=== PATIENT | male | born 1935 | race Caucasian/White ===

== ENCOUNTER 2022-12-26 15:45 | Emergency (ER) | payer MEDICARE, OTHER, SELFPAY ==
[2022-12-26 15:59] VITALS: BP 110/62; PULSE 76; RESP 16; TEMP 36.6; O2SAT 96; BMI 27.3
--- NOTE | 2022-12-26 16:50 | ED_ITS ---
HPI - Nausea/Vomiting/Diarrhea <CRISTIANA Rodriguez - Last Filed: 12/26/22 18:31> General Chief complaint: Nausea/Vomiting/Diarrhea Stated complaint: Thinks C diff Time Seen by Provider: 12/26/22 16:19 History of Present Illness HPI Narrative: This is an 87-year-old gentleman who presents to the emergency department complaining of diarrhea which has started again yesterday following a Clostridium difficile infection that started in the beginning of November. He completed a course of vancomycin, states that he had a visit in [place] and then started having diarrhea again. Denies any weakness, numbness or tingling, blood in his stool. Complains of some lower abdominal pain and diarrhea. He has had incontinence of diarrhea and is wearing a brief. States he can not have a bowel movement at this time but had a Magana catheter placed when he was NPO I will up at the hospital and was treated for urinary tract infection. Patient is a poor historian in the states that she lives on [facility] for a couple weeks a year. States that the patient has had chills, has felt poorly, slept most of the day yesterday. Related Data Previous Rx's Medication Instructions Recorded cefuroxime axetil 500 mg tablet 500 mg PO BID 7 days #14 tabs 12/26/22 vancomycin 125 mg capsule 125 mg PO QID 11 days #44 caps 12/26/22 (Vancocin) Allergies Allergy/AdvReac Type Severity Reaction Status Date / Time No Known Drug Allergies Allergy Verified 12/26/22 17:11 Review of Systems <CRISTIANA Rodriguez - Last Filed: 12/26/22 18:31> Review of Systems ROS Unobtainable: All systems reviewed & are unremarkable except as noted in HPI and below Exam <CRISTIANA Rodriguez - Last Filed: 12/26/22 18:31> Narrative Exam Narrative: Reviewed vitals signs and nursing notes. General: Pleasant, sitting upright, in no acute distress, well groomed, afebrile, poor historian, appears tired HEENT: symmetrical facial expressions, moist mucous membranes, neck is supple, mild right-sided conjunctival discharge CV: regular rate and rhythm, warm extremities Respiratory: normal work of breathing, without tachypnea or hypoxia. GI: abdomen soft, nondistended, without CVA tenderness bilaterally. No abdominal tenderness to palpation, denies abdominal pain MSK: moves all extremities, no weakness, normal tone, ambulatory without deficit Skin: brisk capillary refill, without rash or wound Neuro: clear speech and normal cognition, A&O x3, GCS 15, no focal motor or sensation deficits Initial Vital Signs Initial Vital Signs: Vital Signs Temperature 97.9 F 12/26/22 15:59 Pulse Rate 76 12/26/22 15:59 Respiratory Rate 16 12/26/22 15:59 Blood Pressure 110/62 12/26/22 15:59 Pulse Oximetry 96 12/26/22 15:59 Oxygen Delivery Method Room Air 12/26/22 15:59 <Severo Spencer DO - Last Filed: 12/27/22 07:29> Initial Vital Signs Initial Vital Signs: Vital Signs Temperature 97.9 F 12/26/22 15:59 Pulse Rate 76 12/26/22 15:59 Respiratory Rate 16 12/26/22 15:59 Blood Pressure 110/62 12/26/22 15:59 Pulse Oximetry 96 12/26/22 15:59 Oxygen Delivery Method Room Air 12/26/22 15:59 Course <ANA LAURA RodriguezP - Last Filed: 12/26/22 18:31> Orders Ordered: Discontinued Medications Cefuroxime Axetil (Cefuroxime 250 Mg Tablet) 500 mg PO NOW ONE Stop: 12/26/22 17:16 Last Admin: 12/26/22 17:42 Dose: 500 mg Documented By: RB Vancomycin HCl (Vancomycin 125 Mg Capsule) 125 mg PO NOW ONE Stop: 12/26/22 16:56 Last Admin: 12/26/22 17:11 Dose: 125 mg Documented By: RB Vital Signs Vital signs: Vital Signs - 8 hr 12/26/22 15:59 Temperature 97.9 F Pulse Rate 76 Respiratory Rate 16 Blood Pressure 110/62 Pulse Oximetry 96 Oxygen Delivery Method Room Air <Severo Spencer DO - Last Filed: 12/27/22 07:29> Orders Ordered: Discontinued Medications Cefuroxime Axetil (Cefuroxime 250 Mg Tablet) 500 mg PO NOW ONE Stop: 12/26/22 17:16 Last Admin: 12/26/22 17:42 Dose: 500 mg Documented By: RB Vancomycin HCl (Vancomycin 125 Mg Capsule) 125 mg PO NOW ONE Stop: 12/26/22 16:56 Last Admin: 12/26/22 17:11 Dose: 125 mg Documented By: RB Vital Signs Vital signs: Vital Signs - 8 hr 12/26/22 15:59 Temperature 97.9 F Pulse Rate 76 Respiratory Rate 16 Blood Pressure 110/62 Pulse Oximetry 96 Oxygen Delivery Method Room Air MDM - Nausea/Vomiting/Diarrhea <Ofe Choe [facility] - Last Filed: 12/26/22 18:31> Lab Data 12/26/22 17:40 12/26/22 17:40 Labs: Lab Results 12/26/22 12/26/22 12/26/22 Range/Units 17:10 17:40 17:40 WBC 7.4 (4.5-11.0) X10^3/uL RBC 3.85 L (4.5-5.9) X10^6/uL Hgb 12.6 L (13.5-17.5) g/dL Hct 36.2 L (41-53) % MCV 94.0 (80-100) fL MCH 32.6 (26-34) PG MCHC 34.7 (30-36) % RDW 13.1 (11.6-14.8) % Plt Count 226 (150-400) X10^3/uL Neut % (Auto) 65.3 (50-75) % Lymph % (Auto) 24.5 L (25-40) % [place] % (Auto) 9.2 (3-14) % Eos % (Auto) 0.4 L (2-4) % Baso % (Auto) 0.6 (0-2) % Neut # (Auto) 4800 (4982-9049) /uL Lymph # (Auto) 1800 (9022-0815) /uL [place] # (Auto) 700 (0-900) /uL Eos # (Auto) 0 (0-450) /uL Baso # (Auto) 0 (0-100) /uL Sodium 133 L (137-145) mmol/L Potassium 4.1 (3.4-5.1) mmol/L Chloride 101 (98-107) mmol/L Carbon Dioxide 23 (22-32) mmol/L BUN 28 H (9-20) mg/dL Creatinine 1.11 (0.66-1.25) mg/dL Estimated GFR > 60 (>60) mL/min BUN/Creatinine Ratio 25.2 H (6-22) Glucose 127 H (80-110) mg/dL Lactate (0.7-2.1) mmol/L Calcium 9.2 (8.4-10.2) mg/dL Total Bilirubin 1.3 (0.2-1.3) mg/dL AST 23 (17-59) IU/L ALT 14 (<50) IU/L Alkaline Phosphatase 88 (38-126) U/L Total Protein 6.7 (6.3-8.2) g/dL Albumin 3.8 (3.5-5.0) g/dL Globulin 2.9 (1.7-4.1) g/dL Albumin/Globulin Ratio 1.3 (1.0-2.8) Lipase 94 (23-300) U/L Urine Color Yellow Urine Appearance Cloudy Urine pH 5.5 (4.5-8.0) Ur Specific [place] >=1.030 H (1.000-1.035) Urine Protein 3+ H (Negative) Urine Glucose (UA) Negative (Negative) g/dL Urine Ketones Trace H (NEGATIVE) Urine Occult Blood 3+ H (Negative) Urine Nitrate Positive H (Negative) Urine Bilirubin Negative (NEGATIVE) Urine Urobilinogen 0.2 (0.2) E.U./dL Ur Leukocyte Esterase 2+ H (NEGATIVE) Urine RBC 10-30/hpf H (0-5/HPF) Urine WBC >100/hpf H (0-5/HPF) Ur Squamous Epith Cells None seen (0-5/HPF) Urine Bacteria Moderate (10-30) H (None) Urine Mucus 2+ H (Negative) Ur Culture Indicated? Specimen cultured 12/26/22 Range/Units 17:40 WBC (4.5-11.0) X10^3/uL RBC (4.5-5.9) X10^6/uL Hgb (13.5-17.5) g/dL Hct (41-53) % MCV (80-100) fL MCH (26-34) PG MCHC (30-36) % RDW (11.6-14.8) % Plt Count (150-400) X10^3/uL Neut % (Auto) (50-75) % Lymph % (Auto) (25-40) % [place] % (Auto) (3-14) % Eos % (Auto) (2-4) % Baso % (Auto) (0-2) % Neut # (Auto) (5883-9003) /uL Lymph # (Auto) (9015-9514) /uL [place] # (Auto) (0-900) /uL Eos # (Auto) (0-450) /uL Baso # (Auto) (0-100) /uL Sodium (137-145) mmol/L Potassium (3.4-5.1) mmol/L Chloride (98-107) mmol/L Carbon Dioxide (22-32) mmol/L BUN (9-20) mg/dL Creatinine (0.66-1.25) mg/dL Estimated GFR (>60) mL/min BUN/Creatinine Ratio (6-22) Glucose (80-110) mg/dL Lactate 1.1 (0.7-2.1) mmol/L Calcium (8.4-10.2) mg/dL Total Bilirubin (0.2-1.3) mg/dL AST (17-59) IU/L ALT (<50) IU/L Alkaline Phosphatase (38-126) U/L Total Protein (6.3-8.2) g/dL Albumin (3.5-5.0) g/dL Globulin (1.7-4.1) g/dL Albumin/Globulin Ratio (1.0-2.8) Lipase (23-300) U/L Urine Color Urine Appearance Urine pH (4.5-8.0) Ur Specific Thornton (1.000-1.035) Urine Protein (Negative) Urine Glucose (UA) (Negative) g/dL Urine Ketones (NEGATIVE) Urine Occult Blood (Negative) Urine Nitrate (Negative) Urine Bilirubin (NEGATIVE) Urine Urobilinogen (0.2) E.U./dL Ur Leukocyte Esterase (NEGATIVE) Urine RBC (0-5/HPF) Urine WBC (0-5/HPF) Ur Squamous Epith Cells (0-5/HPF) Urine Bacteria (None) Urine Mucus (Negative) Ur Culture Indicated? Urine Dip Bedside Urine Glucose Negative Bedside Urine Bilirubin - Negative Bedside Urine Ketone - Negative Urine Specific [place] 1.030 Bedside Urine Occult Blood +++ Bedside Urine pH 5.5 Bedside Urine Protein ++ 100 Bedside Urine Urobilinogen - Negative Bedside Urine Nitrite + Positive Bedside Urine Leukocytes ++ 125 Esterase MDM Narrative Medical decision making narrative: Chief complaint: Diarrhea, concern for C diff. Multiple etiologies for patient's symptoms considered including, but not limited to: Recurrent C difficile infection, gastroenteritis, colitis, diverticulitis, catheter associated urinary tract infection Prior Charts reviewed: No prior charts on review C diff PCR ordered, patient unable to provide a stool sample Patient's CBC does not show leukocytosis, mild anemia with a hemoglobin of 12.6 and hematocrit of 36.2, no other significant findings, no left shift, patient's UA is cloudy, with odor, urine nitrite positive, blood and ketones positive, wbc's and bacteria positive, urine culture is pending. Patient's chemistry shows mild hyponatremia 133, BUN of 28, GFR over 60 with a creatinine of 1.11, no elevation to T bilirubin or liver enzymes. No lactic acidosis. Patient treated with Ceftin for Magana catheter associated UTI, since he has not been able to leave a stool sample and his 14 day course of vancomycin for C diff just recently finished and he had recurrence of his symptoms within last week. Patient has an indwelling Magana catheter from his recent hospitalization in [place]. He has not seen primary care in the meantime, states that he was going to follow-up in the ED in [place] and was referred to Urology for follow- up but has not been in town so has not followed up yet. Endorses chills but no fever, slept most of the day yesterday. 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 Patient's symptoms improved over duration of stay with above-stated therapies. Findings and discharge diagnosis discussed with patient/family followed by verbalization of understanding Return precautions discussed with patient/family whom verbalize understanding of diagnosis and plan for follow-up in [place] with Urology and Gastroenterology or to return to the emergency department for worsening symptoms. Urine culture is pending. <Severo Spencer, - Last Filed: 12/27/22 07:29> Lab Data Labs: Lab Results 12/26/22 12/26/22 12/26/22 Range/Units 17:10 17:40 17:40 WBC 7.4 (4.5-11.0) X10^3/uL RBC 3.85 L (4.5-5.9) X10^6/uL Hgb 12.6 L (13.5-17.5) g/dL Hct 36.2 L (41-53) % MCV 94.0 (80-100) fL MCH 32.6 (26-34) PG MCHC 34.7 (30-36) % RDW 13.1 (11.6-14.8) % Plt Count 226 (150-400) X10^3/uL Neut % (Auto) 65.3 (50-75) % Lymph % (Auto) 24.5 L (25-40) % [place] % (Auto) 9.2 (3-14) % Eos % (Auto) 0.4 L (2-4) % Baso % (Auto) 0.6 (0-2) % Neut # (Auto) 4800 (4584-4226) /uL Lymph # (Auto) 1800 (3939-2367) /uL [place] # (Auto) 700 (0-900) /uL Eos # (Auto) 0 (0-450) /uL Baso # (Auto) 0 (0-100) /uL Sodium 133 L (137-145) mmol/L Potassium 4.1 (3.4-5.1) mmol/L Chloride 101 (98-107) mmol/L Carbon Dioxide 23 (22-32) mmol/L BUN 28 H (9-20) mg/dL Creatinine 1.11 (0.66-1.25) mg/dL Estimated GFR > 60 (>60) mL/min BUN/Creatinine Ratio 25.2 H (6-22) Glucose 127 H (80-110) mg/dL Lactate (0.7-2.1) mmol/L Calcium 9.2 (8.4-10.2) mg/dL Total Bilirubin 1.3 (0.2-1.3) mg/dL AST 23 (17-59) IU/L ALT 14 (<50) IU/L Alkaline Phosphatase 88 (38-126) U/L Total Protein 6.7 (6.3-8.2) g/dL Albumin 3.8 (3.5-5.0) g/dL Globulin 2.9 (1.7-4.1) g/dL Albumin/Globulin Ratio 1.3 (1.0-2.8) Lipase 94 (23-300) U/L Urine Color Yellow Urine Appearance Cloudy Urine pH 5.5 (4.5-8.0) Ur Specific [place] >=1.030 H (1.000-1.035) Urine Protein 3+ H (Negative) Urine Glucose (UA) Negative (Negative) g/dL Urine Ketones Trace H (NEGATIVE) Urine Occult Blood 3+ H (Negative) Urine Nitrate Positive H (Negative) Urine Bilirubin Negative (NEGATIVE) Urine Urobilinogen 0.2 (0.2) E.U./dL Ur Leukocyte Esterase 2+ H (NEGATIVE) Urine RBC 10-30/hpf H (0-5/HPF) Urine WBC >100/hpf H (0-5/HPF) Ur Squamous Epith Cells None seen (0-5/HPF) Urine Bacteria Moderate (10-30) H (None) Urine Mucus 2+ H (Negative) Ur Culture Indicated? Specimen cultured 12/26/22 Range/Units 17:40 WBC (4.5-11.0) X10^3/uL RBC (4.5-5.9) X10^6/uL Hgb (13.5-17.5) g/dL Hct (41-53) % MCV (80-100) fL MCH (26-34) PG MCHC (30-36) % RDW (11.6-14.8) % Plt Count (150-400) X10^3/uL Neut % (Auto) (50-75) % Lymph % (Auto) (25-40) % [place] % (Auto) (3-14) % Eos % (Auto) (2-4) % Baso % (Auto) (0-2) % Neut # (Auto) (0706-4965) /uL Lymph # (Auto) (2592-5676) /uL [place] # (Auto) (0-900) /uL Eos # (Auto) (0-450) /uL Baso # (Auto) (0-100) /uL Sodium (137-145) mmol/L Potassium (3.4-5.1) mmol/L Chloride (98-107) mmol/L Carbon Dioxide (22-32) mmol/L BUN (9-20) mg/dL Creatinine (0.66-1.25) mg/dL Estimated GFR (>60) mL/min BUN/Creatinine Ratio (6-22) Glucose (80-110) mg/dL Lactate 1.1 (0.7-2.1) mmol/L Calcium (8.4-10.2) mg/dL Total Bilirubin (0.2-1.3) mg/dL AST (17-59) IU/L ALT (<50) IU/L Alkaline Phosphatase (38-126) U/L Total Protein (6.3-8.2) g/dL Albumin (3.5-5.0) g/dL Globulin (1.7-4.1) g/dL Albumin/Globulin Ratio (1.0-2.8) Lipase (23-300) U/L Urine Color Urine Appearance Urine pH (4.5-8.0) Ur Specific [place] (1.000-1.035) Urine Protein (Negative) Urine Glucose (UA) (Negative) g/dL Urine Ketones (NEGATIVE) Urine Occult Blood (Negative) Urine Nitrate (Negative) Urine Bilirubin (NEGATIVE) Urine Urobilinogen (0.2) E.U./dL Ur Leukocyte Esterase (NEGATIVE) Urine RBC (0-5/HPF) Urine WBC (0-5/HPF) Ur Squamous Epith Cells (0-5/HPF) Urine Bacteria (None) Urine Mucus (Negative) Ur Culture Indicated? Urine Dip Bedside Urine Glucose Negative Bedside Urine Bilirubin - Negative Bedside Urine Ketone - Negative Urine Specific [place] 1.030 Bedside Urine Occult Blood +++ Bedside Urine pH 5.5 Bedside Urine Protein ++ 100 Bedside Urine Urobilinogen - Negative Bedside Urine Nitrite + Positive Bedside Urine Leukocytes ++ 125 Esterase Discharge Plan Departure Patient Disposition: Home Clinical Impression: Enterocolitis due to Clostridium difficile, recurrent Urinary tract infection Qualifiers: Urinary tract infection type: catheter-associated UTI Indwelling urinary catheter type: indwelling urethral catheter Encounter type: initial encounter Qualified Code(s): T83.511A - Infection and inflammatory reaction due to indwelling urethral catheter, initial encounter Instructions: How to Care for Your Magana Catheter -- Male, DI for Urinary Tract Infection (UTI), Clostridioides (Clostridium) difficile Infection Activity Restrictions/Additional Instructions: *You have been diagnosed with likely recurrent C diff infection and a urinary tract infection. Please take the vancomycin 4 times a day for the next 11 days, take Ceftin/cefuroxime the other antibiotic for the urinary tract infection twice a day for the next 7 days. You received your 1st dose here in the emergency department, please continue with vancomycin when you pharmacy picking tech your medication for 2 more doses this evening. Please schedule an appointment with the primary care provider in [place] where you live, please have him evaluated soon, we will call you if the lab work suggests anything concerning. Please pharmacy picking tech your prescription and continue with these medications. I hope you start feeling better soon. [facility] [place] Located at [address] [place] [address], [address] in?[place], [place]. Open weekdays 8am - 5pm. For appointments, please call [phone]. [facility] ?[address], [place] [address] Hours: Opens 7:30AM Mon *What to do: *Please continue to take your regular medications as directed. [ x] New medication prescriptions sent to your pharmacy: [facility] [ ] New medication written as a paper prescription [ ] No new medications given Please call and schedule follow up with your primary care provider in 2-3 days, at least for an update. Let them know you were seen in the Emergency Department for the above problem. We will electronically transmit a record of today's note if your PCP or specialist is in our system. *If you do not have a primary care provider please contact [phone] to establish care with one of the [facility] primary care providers. *Return to the Emergency Department for worsening symptoms, inability to keep liquids down, fever greater than 101F, chills, or other concerning symptom. Prescriptions: New vancomycin [Vancocin] 125 mg capsule 125 mg PO QID 11 Days Qty: 44 0RF cefuroxime axetil 500 mg tablet 500 mg PO BID 7 Days Qty: 14 0RF Stand Alone Forms: Patient Portal/API <Severo Spencer DO - Last Filed: 12/27/22 07:29> [facility] Attestation: I was immediately available in the department for consultation. Documentation has been reviewed. I agree with assessment and plan.
[2022-12-26] MEDS: VANCOMYCIN 125 MG CAPSULE PO (17:11)
[2022-12-26 17:19] LABS: Appearance Urine UA CLOUDY; Bilirubin Urine UA NEGATIVE (NEGATIVE); Color Urine UA YELLOW; Glucose Urine UA NEGATIVE (Negative); Ketones Urine UA TRACE (NEGATIVE); Leukocyte Esterase Urine UA 2+ (NEGATIVE); Nitrite Urine UA POSITIVE (Negative); Occult Blood Urine UA 3+ (Negative); Protein Urine UA 3+ (Negative); Specific Gravity Urine UA >=1.030 (1.000-1.035); Urobilinogen Urine UA 0.2 E.U./dL (0.2); pH Urine UA 5.5 (4.5-8.0)
[2022-12-26 17:30] LABS: Bacteria Urine Moderate (10-30); Culture Indicated Urine Specimen Cultured; Mucus Urine 2+ (Negative); RBC Urine 10-30/HPF (0-5/HPF); Squamous Epithelial Cell Urine None Seen (0-5/HPF); WBC Urine >100/HPF (0-5/HPF)
[2022-12-26] MEDS: cefUROXime 250 MG TABLET 500 MG PO (17:42)
[2022-12-26 17:49] LABS: Add Manual Diff / Slide Review NO; Basophils Absolute Auto 0 /uL (0-100); Basophils Percent Auto 0.6 % (0-2); Eosinophils Absolute Auto 0 /uL (0-450); Eosinophils Percent Auto 0.4 % (2-4); Hematocrit 36.2 % (41-53); Hemoglobin 12.6 g/dL (13.5-17.5); Lymphocytes Absolute Auto 1800 /uL (1100-4500); Lymphocytes Percent Auto 24.5 % (25-40); Mean Corpuscular HGB Conc 34.7 % (30-36); Mean Corpuscular Hemoglobin 32.6 PG (26-34); Monocytes Absolute Auto 700 /uL (0-900); Monocytes Percent Auto 9.2 % (3-14); Neutrophils Absolute Auto 4800 /uL (1500-7000); Neutrophils Percent Auto 65.3 % (50-75); Platelet Count 226 X10^3/uL (150-400); Red Blood Cell Count 3.85 X10^6/uL (4.5-5.9); Red Cell Distribution Width 13.1 % (11.6-14.8); White Blood Cell Count 7.4 X10^3/uL (4.5-11.0)
[2022-12-26 18:05] LABS: Lactate (Lactic Acid) 1.1 mmol/L (0.7-2.1)
[2022-12-26 18:06] LABS: Alanine Aminotransferase 14 IU/L (<50); Albumin 3.8 g/dL (3.5-5.0); Albumin Globulin Ratio 1.3 (1.0-2.8); Alkaline Phosphatase 88 U/L (38-126); Aspartate Aminotransferase 23 IU/L (17-59); BUN Creatinine Ratio 25.2 (6-22); Bilirubin Total 1.3 mg/dL (0.2-1.3); Blood Urea Nitrogen 28 mg/dL (9-20); Calcium 9.2 mg/dL (8.4-10.2); Carbon Dioxide 23 mmol/L (22-32); Chloride 101 mmol/L (98-107); Estimated Glomerular Filt Rate > 60 mL/min (>60); Globulin 2.9 g/dL (1.7-4.1); Glucose 127 mg/dL (80-110); HEMOLYSIS < 15 (0-50); Lipase 94 U/L (23-300); Potassium 4.1 mmol/L (3.4-5.1); Sodium 133 mmol/L (137-145); Total Protein 6.7 g/dL (6.3-8.2)
[2022-12-26 18:34] VITALS: BP 118/68; PULSE 88; RESP 20; O2SAT 98
== END 2022-12-26 18:35 | disposition home or self-care (01) ==
PROVIDERS: Emergency Provider Nurse Practitioner Critical Care Medicine
DX: A04.71 Enterocolitis due to Clostridium difficile, recurrent (principal); T83.511A Infection and inflammatory reaction due to indwelling urethral catheter, initial encounter
CPT/HCPCS: 80053; 81001; 81003; 83605; 83690; 85025; 87077; 87086; 87186; 99283